=== PATIENT | male | born 1965 | race Caucasian/White ===

== ENCOUNTER → 2017-12-05 | Outpatient (CLI) | payer BC | END | disposition home or self-care (01) | LOC: WOUND 13:50 | PROVIDERS: ATTEND Podiatrist Foot & Ankle Surgery | DX: E11.621 Type 2 diabetes mellitus with foot ulcer (principal); L97.521 Non-pressure chronic ulcer of other part of left foot limited to breakdown of skin; L97.511 Non-pressure chronic ulcer of other part of right foot limited to breakdown of skin; I10 Essential (primary) hypertension; E11.40 Type 2 diabetes mellitus with diabetic neuropathy, unspecified; E78.5 Hyperlipidemia, unspecified; E03.9 Hypothyroidism, unspecified | CPT/HCPCS: 97597; 99205 ==

== ENCOUNTER → 2017-12-19 | Outpatient (CLI) | payer BC | END | disposition home or self-care (01) | LOC: WOUND 09:42 | PROVIDERS: ATTEND Podiatrist Foot & Ankle Surgery | DX: E11.621 Type 2 diabetes mellitus with foot ulcer (principal); L97.411 Non-pressure chronic ulcer of right heel and midfoot limited to breakdown of skin; L97.421 Non-pressure chronic ulcer of left heel and midfoot limited to breakdown of skin; I10 Essential (primary) hypertension; E78.5 Hyperlipidemia, unspecified; E03.9 Hypothyroidism, unspecified; E11.40 Type 2 diabetes mellitus with diabetic neuropathy, unspecified | CPT/HCPCS: 97597 ==

== ENCOUNTER → 2017-12-26 | Outpatient (CLI) | payer BC | END | disposition home or self-care (01) | LOC: WOUND 08:00 | PROVIDERS: ATTEND Podiatrist Foot & Ankle Surgery | DX: E11.621 Type 2 diabetes mellitus with foot ulcer (principal); L97.421 Non-pressure chronic ulcer of left heel and midfoot limited to breakdown of skin; I10 Essential (primary) hypertension; E78.5 Hyperlipidemia, unspecified; E03.9 Hypothyroidism, unspecified; E11.40 Type 2 diabetes mellitus with diabetic neuropathy, unspecified | CPT/HCPCS: 11042 ==

== ENCOUNTER → 2018-01-02 | Outpatient (CLI) | payer BC | END | disposition home or self-care (01) | LOC: WOUND 07:56 | PROVIDERS: ATTEND Podiatrist Foot & Ankle Surgery | DX: E11.621 Type 2 diabetes mellitus with foot ulcer (principal); L97.421 Non-pressure chronic ulcer of left heel and midfoot limited to breakdown of skin; L97.411 Non-pressure chronic ulcer of right heel and midfoot limited to breakdown of skin; I10 Essential (primary) hypertension; E78.5 Hyperlipidemia, unspecified; E03.9 Hypothyroidism, unspecified; E11.40 Type 2 diabetes mellitus with diabetic neuropathy, unspecified | CPT/HCPCS: 97597 ==

== ENCOUNTER → 2019-03-30 | Outpatient (CLI) | payer BC, OTHER | END | disposition home or self-care (01) | LOC: CVU 06:39 | PROVIDERS: ATTEND Internal Medicine Cardiovascular Disease | DX: I10 Essential (primary) hypertension (principal); E11.9 Type 2 diabetes mellitus without complications; R94.31 Abnormal electrocardiogram [ECG] [EKG] | CPT/HCPCS: 78452; 93017; 93306; A9502 ==

== ENCOUNTER 2019-04-30 22:06 | Inpatient (IN) | payer OTHER ==
[~2019-04-30] VITALS: Ht 188 cm; Wt 121.0 kg
[2019-04-30] MEDS ORDERED: ALBUTEROL/IPRATROPIUM 2.5MG/0.5MG, 3 ML ONE (22:28)
[2019-04-30] MEDS ORDERED: ALBUTEROL/IPRATROPIUM 2.5MG/0.5MG, 3 ML NPPB ONE (22:30)
[2019-04-30] MEDS ORDERED: ACETAMINOPHEN 500 MG TABLET PO ONE (22:30)
[2019-04-30] MEDS ORDERED: SODIUM CHLORIDE FLUSH 10ML SYR IVF ONE (22:30)
[2019-04-30] MEDS ORDERED: SODIUM CHLORIDE 0.9% 1,000ML IVBOLUS ONE ×2 (22:30→23:00)
--- NOTE | 2019-04-30 22:30 | NUR ---
PT TO ED AFTER BELIEVED HANTA VIRUS EXPOSURE, CLEANING OUT OLD CABIN FULL OF MICE. PT DIAPHORETIC AND SOB, NO C/O CP. STATES HE FEELS "VERY DIZZY", NO N/V/D. MD AT BEDSIDE, PER MD 2 IV'S AND IVF. IV ESTABLISHED AND 1ST LITER NS IVF INFUSING. LAB AT BEDSIDE. TECH AT BEDSIDE FOR EKG.
[2019-04-30] MEDS ORDERED: ACETAMINOPHEN 500 MG TABLET ONE (22:39)
[2019-04-30 23:15] LABS: ALANINE AMINOTRANSFERASE 22 U/L (12-78); ALBUMIN 3.8 g/dL (3.4-5.0); ANION GAP 14 mmol/L (5-15); CALCIUM 8.3 mg/dL (8.5-10.1); CHLORIDE 110 mmol/L (98-107); CREATININE 1.26 mg/dL (0.7-1.3)
[2019-04-30] MEDS ORDERED: ATOR40TA78 PO (23:15)
[2019-04-30 23:19] LABS: ALKALINE PHOSPHATASE 49 U/L (45-117); BILIRUBIN,TOTAL 0.9 mg/dL (0.2-1.0); TOTAL PROTEIN 7.3 g/dL (6.4-8.2); TROPONIN I < 0.015 ng/mL (0.000-0.045)
[2019-04-30] MEDS ORDERED: METF500T17 PO (23:22)
[2019-04-30] MEDS ORDERED: GLIM4TAB2 PO (23:22)
[2019-04-30] MEDS ORDERED: EMPA25TA PO (23:22)
[2019-04-30] MEDS ORDERED: LIOT5TAB3 PO (23:22)
[2019-04-30] MEDS ORDERED: LEVO175T2 PO (23:22)
[2019-04-30] MEDS ORDERED: TEST1.253 TP (23:22)
[2019-04-30] MEDS ORDERED: FENO145T32 PO (23:22)
[2019-04-30] MEDS ORDERED: LOSA50TA14 PO (23:22)
[2019-04-30] MEDS ORDERED: INSU100I34 INJ (23:22)
[2019-04-30] MEDS ORDERED: SEMA1PEN INJ (23:22)
--- NOTE | 2019-04-30 23:22 | NUR ---
PT RESTING ON GURNEY, DENIES PAIN OR NEEDS, C/O DIZZINESS. MONITORS IN PLACE, SIDERAIL SUP X2, CALL LIGHT WITHIN REACH. SECOND IV SITE STARTED. AWAITING LAB RESULTS, AND CTA
[2019-04-30 23:27] LABS: BASOPHILS # (AUTO) 0.01 x10^3/uL (0-0.1); BASOPHILS % (AUTO) 0 % (0-1); EOSINOPHILS # (AUTO) 0.01 x10^3/uL (0-0.4); EOSINOPHILS % (AUTO) 0 % (1-7); LYMPHOCYTES # (AUTO) 0.68 x10^3/uL (1-3.4); LYMPHOCYTES % (AUTO) 15 % (22-44); MD NO; MEAN CORPUSCULAR HEMOGLOBIN 29.2 pg (27.5-34.5); MEAN CORPUSCULAR HGB CONC 32.8 g/dL (33.2-36.2); MEAN CORPUSCULAR VOLUME 88.8 fL (81-97); MEAN PLATELET VOLUME 7.4 fL (7.4-10.4); MONOCYTES # (AUTO) 0.03 x10^3/uL (0.2-0.8); MONOCYTES % (AUTO) 1 % (2-9); NEUTROPHILS # (AUTO) 3.83 x10^3/uL (1.8-6.8); NEUTROPHILS % (AUTO) 84 % (42-75); PLATELET COUNT 177 x10^3/uL (130-400); RED CELL DISTRIBUTION WIDTH 14.1 % (9.4-14.8)
[2019-04-30 23:37] LABS: O2 FLOW ROOM AIR L/min
--- NOTE | 2019-05-01 00:19 | NUR ---
PT TO RADIOLOGY AT THIS TIME
--- NOTE | 2019-05-01 01:12 | NUR ---
PT RESTING CALMLY, DENIES NEEDS, MONITORS IN PLACE, CALL LIGHT WITHIN REACH. AWAIITNG CT RESULT
[2019-05-01] MEDS ORDERED: OMNIPAQUE 350 MG/ML, 100ML BOTTLE ONE (01:18)
--- NOTE | 2019-05-01 01:34 | NUR ---
PROVIDED PT WITH SANDWICH AND JUICE, PT DENIES FURTHER NEEDS
[2019-05-01] MEDS ORDERED: hydrALAzine 20 MG/ML, 1ML IVPush PRN (02:00)
[2019-05-01 02:17] LABS: HEMOGLOBIN A1C 7.4 % (4.2-6.3)
[2019-05-01 02:20] VITALS: BP 90/60
[2019-05-01] MEDS: ENOXAPARIN 40 MG/0.4 ML SQ SCH (02:25)
[2019-05-01] MEDS: SODIUM CHLORIDE 0.9% 1,000 ML IV SCH ×2 (02:25→16:11)
[2019-05-01] MEDS ORDERED: PREG150C PO (03:10)
[2019-05-01] MEDS ORDERED: CARV6.25 PO (03:10)
[2019-05-01] MEDS: LEVOTHYROXINE 175 MCG TABLET PO SCH (05:59)
[2019-05-01] MEDS ORDERED: INSULIN LISPRO 100 UNITS/ML, PEN SQ-INSULIN SCH (07:00)
[2019-05-01 08:05] VITALS: BP 113/78
[2019-05-01] MEDS: TESTOSTERONE 50 MG TP SCH (08:28)
[2019-05-01] MEDS: FENOFIBRATE 145 MG TABLET PO SCH (08:28)
[2019-05-01] MEDS: Empagliflozin (Jardiance) 25 MG) PO SCH (08:28)
[2019-05-01] MEDS: LIOTHYRONINE 5 MCG TABLET PO SCH (08:28)
[2019-05-01] MEDS: LOSARTAN 50MG TABLET PO SCH (08:28)
[2019-05-01] MEDS: ACETAMINOPHEN 325 MG TABLET PO PRN ×2 (08:32→19:24)
[2019-05-01] MEDS: INSULIN GLARGINE 100 UNITS/ML, PEN SQ-INSULIN SCH (09:47)
[2019-05-01 14:20] VITALS: BP 110/69
[2019-05-01] MEDS: INSULIN LISPRO 100 UNITS/ML, PEN SQ-INSULIN SCH ×2 (16:00→21:08)
[2019-05-01 19:01] LABS: MICROSCOPIC NOT IND
[2019-05-01 19:08] LABS: CULTURE INDICATED? NO
[2019-05-01 19:12] VITALS: BP 100/70
[2019-05-01] MEDS: ATORVASTATIN 80 MG TABLET PO SCH (21:06)
[2019-05-02] MEDS: ENOXAPARIN 40 MG/0.4 ML SQ SCH (02:06)
[2019-05-02 02:09] VITALS: BP 105/73
[2019-05-02] MEDS: SODIUM CHLORIDE 0.9% 1,000 ML IV SCH ×2 (04:13→17:36)
[2019-05-02] MEDS: ACETAMINOPHEN 325 MG TABLET PO PRN (04:49)
[2019-05-02 05:18] LABS: ALBUMIN 2.9 g/dL (3.4-5.0); ANION GAP 7 mmol/L (5-15); CHLORIDE 112 mmol/L (98-107)
[2019-05-02 05:22] LABS: ALANINE AMINOTRANSFERASE 31 U/L (12-78); ALKALINE PHOSPHATASE 41 U/L (45-117); BILIRUBIN,TOTAL 0.5 mg/dL (0.2-1.0); TOTAL PROTEIN 5.9 g/dL (6.4-8.2)
[2019-05-02 06:09] LABS: BASOPHILS # (AUTO) 0.02 x10^3/uL (0-0.1); BASOPHILS % (AUTO) 0 % (0-1); EOSINOPHILS # (AUTO) 0.26 x10^3/uL (0-0.4); EOSINOPHILS % (AUTO) 5 % (1-7); LYMPHOCYTES # (AUTO) 1.09 x10^3/uL (1-3.4); LYMPHOCYTES % (AUTO) 20 % (22-44); MD NO; MEAN CORPUSCULAR HEMOGLOBIN 28.5 pg (27.5-34.5); MEAN CORPUSCULAR HGB CONC 32.5 g/dL (33.2-36.2); MEAN CORPUSCULAR VOLUME 87.9 fL (81-97); MEAN PLATELET VOLUME 7.1 fL (7.4-10.4); MONOCYTES # (AUTO) 0.59 x10^3/uL (0.2-0.8); MONOCYTES % (AUTO) 11 % (2-9); NEUTROPHILS # (AUTO) 3.58 x10^3/uL (1.8-6.8); NEUTROPHILS % (AUTO) 65 % (42-75); PLATELET COUNT 125 x10^3/uL (130-400); RED BLOOD COUNT 4.34 x10^6/uL (4.38-5.82); RED CELL DISTRIBUTION WIDTH 14.6 % (9.4-14.8)
[2019-05-02] MEDS: LEVOTHYROXINE 175 MCG TABLET PO SCH (06:25)
[2019-05-02] MEDS: INSULIN LISPRO 100 UNITS/ML, PEN SQ-INSULIN SCH ×4 (06:58→21:00)
[2019-05-02 07:07] VITALS: BP 117/84
[2019-05-02 08:15] VITALS: BP 115/72
[2019-05-02] MEDS ORDERED: Semaglutide (Ozempic) 1 MG INJ SCH (09:00)
[2019-05-02] MEDS: LOSARTAN 50MG TABLET PO SCH (09:00)
[2019-05-02] MEDS: Empagliflozin (Jardiance) 25 MG) PO SCH (09:00)
[2019-05-02] MEDS: TESTOSTERONE 50 MG TP SCH (09:00)
[2019-05-02] MEDS: FENOFIBRATE 145 MG TABLET PO SCH (09:46)
[2019-05-02] MEDS: LIOTHYRONINE 5 MCG TABLET PO SCH (09:46)
[2019-05-02] MEDS: INSULIN GLARGINE 100 UNITS/ML, PEN SQ-INSULIN SCH (09:59)
[2019-05-02 13:20] VITALS: BP 113/76
[2019-05-02 18:50] VITALS: BP 109/69
[2019-05-02] MEDS: PREGABALIN 150 MG CAPSULE PO SCH (21:01)
[2019-05-02] MEDS: ATORVASTATIN 80 MG TABLET PO SCH (21:01)
[2019-05-03 01:55] VITALS: BP 115/65
[2019-05-03] MEDS: ENOXAPARIN 40 MG/0.4 ML SQ SCH (01:55)
[2019-05-03 05:06] LABS: BASOPHILS # (AUTO) 0.02 x10^3/uL (0-0.1); BASOPHILS % (AUTO) 1 % (0-1); EOSINOPHILS % (AUTO) 5 % (1-7); LYMPHOCYTES # (AUTO) 1.38 x10^3/uL (1-3.4); LYMPHOCYTES % (AUTO) 31 % (22-44); MD NO; MEAN CORPUSCULAR HEMOGLOBIN 29.5 pg (27.5-34.5); MEAN CORPUSCULAR HGB CONC 32.9 g/dL (33.2-36.2); MEAN CORPUSCULAR VOLUME 89.4 fL (81-97); MEAN PLATELET VOLUME 7.6 fL (7.4-10.4); MONOCYTES % (AUTO) 14 % (2-9); NEUTROPHILS % (AUTO) 50 % (42-75); PLATELET COUNT 165 x10^3/uL (130-400); RED BLOOD COUNT 4.51 x10^6/uL (4.38-5.82); RED CELL DISTRIBUTION WIDTH 14.2 % (9.4-14.8)
[2019-05-03 05:09] LABS: ALBUMIN 3.1 g/dL (3.4-5.0); ANION GAP 5 mmol/L (5-15); CALCIUM 8.6 mg/dL (8.5-10.1); CHLORIDE 113 mmol/L (98-107)
[2019-05-03 05:12] LABS: ALANINE AMINOTRANSFERASE 27 U/L (12-78); ALKALINE PHOSPHATASE 49 U/L (45-117); BILIRUBIN,TOTAL 0.3 mg/dL (0.2-1.0); CREATININE 1.04 mg/dL (0.7-1.3); TOTAL PROTEIN 6.3 g/dL (6.4-8.2)
[2019-05-03] MEDS: LEVOTHYROXINE 175 MCG TABLET PO SCH (05:33)
[2019-05-03] MEDS: INSULIN LISPRO 100 UNITS/ML, PEN SQ-INSULIN SCH ×2 (06:41→11:13)
[2019-05-03 08:15] VITALS: BP 122/79
[2019-05-03] MEDS: Empagliflozin (Jardiance) 25 MG) PO SCH (09:00)
[2019-05-03] MEDS: TESTOSTERONE 50 MG TP SCH (09:00)
[2019-05-03] MEDS: SODIUM CHLORIDE 0.9% 1,000 ML IV SCH (09:02)
[2019-05-03] MEDS: LIOTHYRONINE 5 MCG TABLET PO SCH (09:03)
[2019-05-03] MEDS: PREGABALIN 150 MG CAPSULE PO SCH (09:03)
[2019-05-03] MEDS: FENOFIBRATE 145 MG TABLET PO SCH (09:03)
[2019-05-03] MEDS: LOSARTAN 50MG TABLET PO SCH (09:03)
[2019-05-03] MEDS: INSULIN GLARGINE 100 UNITS/ML, PEN SQ-INSULIN SCH (09:04)
[2019-05-03 14:00] VITALS: BP 112/64
[2019-05-03 14:04] VITALS: BP 110/69
== END 2019-05-03 14:22 | disposition home or self-care (01) | DRG 871 ==
LOC: ED 23:49 → EDIP 05-01 01:27 → 4NOR 05-01 02:02
PROVIDERS: ADMIT Family Medicine; ATTEND Internal Medicine
DX: A41.9 Sepsis, unspecified organism (principal); J12.9 Viral pneumonia, unspecified; E03.9 Hypothyroidism, unspecified; E11.65 Type 2 diabetes mellitus with hyperglycemia; I10 Essential (primary) hypertension; Z88.0 Allergy status to penicillin; E78.5 Hyperlipidemia, unspecified; E86.0 Dehydration
CPT/HCPCS: 36415; 36600; 84145; J7620; 71045; 71275; 80053; 81003; 82803; 82962; 83036; 83605; 83880; 84484; 85025; 86790; 87040; 93005; 94640; G0378; J1650; Q9967; J1815; J7030

== ENCOUNTER 2019-05-06 09:16 | Inpatient (IN) | payer OTHER ==
[~2019-05-06] VITALS: Ht 188 cm; Wt 119.0 kg
[~2019-05-06 09:16] MED LIST: ATOR40TA78 PO; CARV6.25 PO; EMPA25TA PO; FENO145T32 PO; GLIM4TAB2 PO; INSU100I34 INJ; LEVO175T2 PO; LIOT5TAB3 PO; LOSA50TA14 PO; METF500T17 PO; PREG150C PO; SEMA1PEN INJ; TEST1.253 TP
--- NOTE | 2019-05-06 09:40 | NUR ---
PT HAS CO OF FEVER, BODY ACHES. WAS RECENTLY ADMITTED FOR SAME COMPLAINT, DC ON SATURDAY. PT STATES HE WAS AFREBRILE FOR 3 DAYS UNTIL 530 AM TODAY.
[2019-05-06] MEDS ORDERED: ACETAMINOPHEN 500 MG TABLET ONE (10:16)
[2019-05-06] MEDS ORDERED: MORPHINE SULFATE 4 MG/ML, 1ML ONE (10:28)
[2019-05-06] MEDS ORDERED: MORPHINE SULFATE 4 MG/ML, 1ML IVPush PRN (10:30)
[2019-05-06] MEDS ORDERED: ACETAMINOPHEN 500 MG TABLET PO ONE (10:30)
[2019-05-06] MEDS ORDERED: SODIUM CHLORIDE 0.9% 1,000ML IVBOLUS ONE ×2 (10:30→13:30)
--- NOTE | 2019-05-06 10:34 | NUR ---
BLOOD CULTURES DRAWN. MEDICATED PER MD ORDERS. PAIN 03/30
[2019-05-06 11:28] LABS: INTERNATIONAL NORMALIZED RATIO 0.98 (0.93-1.1); PROTHROMBIN TIME 10.3 Seconds (9.6-11.5)
[2019-05-06 11:31] LABS: BASOPHILS # (AUTO) 0.02 x10^3/uL (0-0.1); BASOPHILS % (AUTO) 0 % (0-1); EOSINOPHILS # (AUTO) 0.06 x10^3/uL (0-0.4); EOSINOPHILS % (AUTO) 1 % (1-7); LYMPHOCYTES % (AUTO) 7 % (22-44); MD NO; MEAN CORPUSCULAR HGB CONC 32.7 g/dL (33.2-36.2); MEAN CORPUSCULAR VOLUME 88.5 fL (81-97); MEAN PLATELET VOLUME 7.2 fL (7.4-10.4); MONOCYTES # (AUTO) 0.39 x10^3/uL (0.2-0.8); MONOCYTES % (AUTO) 5 % (2-9); NEUTROPHILS # (AUTO) 7.35 x10^3/uL (1.8-6.8); NEUTROPHILS % (AUTO) 87 % (42-75); PLATELET COUNT 236 x10^3/uL (130-400); RED BLOOD COUNT 5.25 x10^6/uL (4.38-5.82); RED CELL DISTRIBUTION WIDTH 14.4 % (9.4-14.8)
[2019-05-06 11:32] LABS: ALANINE AMINOTRANSFERASE 25 U/L (12-78); ANION GAP 9 mmol/L (5-15); CALCIUM 8.8 mg/dL (8.5-10.1); CHLORIDE 109 mmol/L (98-107); CREATININE 1.13 mg/dL (0.7-1.3)
[2019-05-06 11:34] LABS: ALKALINE PHOSPHATASE 67 U/L (45-117); BILIRUBIN,TOTAL 0.9 mg/dL (0.2-1.0); TOTAL PROTEIN 7.8 g/dL (6.4-8.2)
--- NOTE | 2019-05-06 11:36 | NUR ---
PT STATES HEADACHE IS MUCH BETTER. PAIN HAS DECREASED. PT IS RESTING COMFORTABLE. VS STABLE. FAMILY AT BEDSIDE
--- NOTE | 2019-05-06 12:10 | NUR ---
GIVEN JUICE AND CRACKERS. PT STATES HE IS A DIABETIC, SELF BLOOD SUGAR TESTING
[2019-05-06] MEDS ORDERED: OMNIPAQUE 350 MG/ML, 100ML BOTTLE ONE (12:13)
[2019-05-06] MEDS ORDERED: IBUPROFEN 800 MG TABLET PO ONE (12:30)
[2019-05-06] MEDS ORDERED: IBUPROFEN 800 MG TABLET ONE (12:47)
[2019-05-06] MEDS ORDERED: TEMPLATE NON-FORMULARY MED. (Semaglutide (Ozempic) 1 MG) INJ SCH (14:30)
[2019-05-06] MEDS ORDERED: MELATONIN 3 MG TABLET PO PRN (14:30)
[2019-05-06] MEDS ORDERED: ONDANSETRON ODT 4 MG PO PRN (14:30)
[2019-05-06] MEDS ORDERED: hydrALAzine 20 MG/ML, 1ML IV PRN (14:30)
[2019-05-06] MEDS ORDERED: LIDOCAINE-MPF 1%, 5ML ONE (14:48)
[2019-05-06] MEDS ORDERED: GLUCAGON 1 MG IM PRN (15:30)
[2019-05-06] MEDS ORDERED: DEXTROSE 50%, 50ML SYRINGE IVPush PRN (15:30)
[2019-05-06] MEDS ORDERED: SEMAGLUTIDE MC SCH (15:30)
[2019-05-06] MEDS ORDERED: DEXTROSE 4 GM TAB.CHEW PO PRN (15:30)
[2019-05-06] MEDS: INSULIN LISPRO 100 UNITS/ML, PEN SQ-INSULIN SCH ×2 (16:00→21:00)
[2019-05-06 16:10] LABS: GLUCOSE, CSF 76 mg/dL (40-80); TOTAL PROTEIN,CSF 46 mg/dL (15-45)
[2019-05-06 16:29] LABS: HCT (SEDRATE) 44.5 % (39.2-51.8)
[2019-05-06] MEDS: ACETAMINOPHEN 325 MG TABLET PO PRN ×2 (16:41→21:37)
[2019-05-06] MEDS: SODIUM CHLORIDE 0.9% 1,000 ML IV SCH (16:41)
[2019-05-06 16:47] LABS: C-REACTIVE PROTEIN, QUANT 8.2 mg/dL (0.02-0.49)
[2019-05-06] MEDS ORDERED: POTASSIUM CHLORIDE 20 MEQ TAB.ER.PRT PO ONE (17:00)
[2019-05-06 19:54] VITALS: BP 125/81
[2019-05-06] MEDS: PREGABALIN 150 MG CAPSULE PO SCH (20:49)
[2019-05-06] MEDS: CARVEDILOL 6.25 MG TABLET PO SCH (20:50)
[2019-05-06] MEDS: ATORVASTATIN 40 MG TABLET PO SCH (20:50)
[2019-05-06] MEDS: SODIUM CHLORIDE FLUSH 10ML SYR IVF SCH (20:57)
[2019-05-07] MEDS: SODIUM CHLORIDE 0.9% 1,000 ML IV SCH ×3 (01:07→23:01)
[2019-05-07 01:19] VITALS: BP 121/68
[2019-05-07] MEDS: LEVOTHYROXINE 175 MCG TABLET PO SCH (05:23)
[2019-05-07] MEDS: ACETAMINOPHEN 325 MG TABLET PO PRN ×3 (05:24→20:06)
[2019-05-07 05:31] LABS: ALANINE AMINOTRANSFERASE 18 U/L (12-78); ALBUMIN 2.9 g/dL (3.4-5.0); ANION GAP 10 mmol/L (5-15); CALCIUM 8.2 mg/dL (8.5-10.1); CHLORIDE 108 mmol/L (98-107); CREATININE 1.02 mg/dL (0.7-1.3)
[2019-05-07 05:32] LABS: BASOPHILS # (AUTO) 0.03 x10^3/uL (0-0.1); BASOPHILS % (AUTO) 0 % (0-1); EOSINOPHILS # (AUTO) 0.03 x10^3/uL (0-0.4); EOSINOPHILS % (AUTO) 1 % (1-7); LYMPHOCYTES # (AUTO) 0.85 x10^3/uL (1-3.4); LYMPHOCYTES % (AUTO) 11 % (22-44); MD NO; MEAN CORPUSCULAR HEMOGLOBIN 28.5 pg (27.5-34.5); MEAN CORPUSCULAR HGB CONC 32.6 g/dL (33.2-36.2); MEAN CORPUSCULAR VOLUME 87.4 fL (81-97); MEAN PLATELET VOLUME 6.5 fL (7.4-10.4); MONOCYTES # (AUTO) 0.89 x10^3/uL (0.2-0.8); MONOCYTES % (AUTO) 12 % (2-9); NEUTROPHILS # (AUTO) 5.79 x10^3/uL (1.8-6.8); NEUTROPHILS % (AUTO) 76 % (42-75); PLATELET COUNT 174 x10^3/uL (130-400); RED BLOOD COUNT 4.47 x10^6/uL (4.38-5.82); RED CELL DISTRIBUTION WIDTH 14.3 % (9.4-14.8)
[2019-05-07 05:33] LABS: ALKALINE PHOSPHATASE 48 U/L (45-117); BILIRUBIN,TOTAL 1.2 mg/dL (0.2-1.0); TOTAL PROTEIN 6.5 g/dL (6.4-8.2)
[2019-05-07] MEDS: INSULIN LISPRO 100 UNITS/ML, PEN SQ-INSULIN SCH ×4 (07:00→20:01)
[2019-05-07 07:50] VITALS: BP 137/74
[2019-05-07] MEDS: INSULIN GLARGINE 100 UNITS/ML, PEN SQ-INSULIN SCH (09:00)
[2019-05-07] MEDS: TESTOSTERONE 50 MG TP SCH (09:00)
[2019-05-07] MEDS: SODIUM CHLORIDE FLUSH 10ML SYR IVF SCH ×2 (09:00→20:23)
[2019-05-07] MEDS: ENOXAPARIN 40 MG/0.4 ML SQ SCH (09:09)
[2019-05-07] MEDS: SENNA/DOCUSATE TABLET PO SCH (09:10)
[2019-05-07] MEDS: GLIMEPIRIDE 4 MG TABLET PO SCH (09:10)
[2019-05-07] MEDS: PREGABALIN 150 MG CAPSULE PO SCH ×2 (09:10→20:06)
[2019-05-07] MEDS: LIOTHYRONINE 5 MCG TABLET PO SCH (09:10)
[2019-05-07] MEDS: CARVEDILOL 6.25 MG TABLET PO SCH ×2 (09:11→20:23)
[2019-05-07] MEDS: FENOFIBRATE 145 MG TABLET PO SCH (09:11)
[2019-05-07] MEDS ORDERED: IBUPROFEN 200 MG TABLET PO PRN (12:00)
[2019-05-07 13:35] VITALS: BP 144/76
[2019-05-07 14:03] LABS: ANA SCREEN POSITIVE (Negative); ANA TITER MIXED; ANTI-NUCLEAR ANTIBODY PATTERN MIXED
[2019-05-07 19:57] VITALS: BP 109/72
[2019-05-07] MEDS: ATORVASTATIN 40 MG TABLET PO SCH (20:06)
[2019-05-08 01:51] VITALS: BP 110/70
[2019-05-08] MEDS: LEVOTHYROXINE 175 MCG TABLET PO SCH (06:09)
[2019-05-08 06:49] LABS: MEAN CORPUSCULAR HEMOGLOBIN 28.6 pg (27.5-34.5); MEAN CORPUSCULAR HGB CONC 32.9 g/dL (33.2-36.2); MEAN CORPUSCULAR VOLUME 86.9 fL (81-97); RED BLOOD COUNT 4.08 x10^6/uL (4.38-5.82); RED CELL DISTRIBUTION WIDTH 14.1 % (9.4-14.8)
[2019-05-08 06:52] LABS: ALBUMIN 2.4 g/dL (3.4-5.0); ANION GAP 10 mmol/L (5-15); CALCIUM 8.1 mg/dL (8.5-10.1); CHLORIDE 108 mmol/L (98-107)
[2019-05-08 06:56] LABS: ALANINE AMINOTRANSFERASE 13 U/L (12-78); ALKALINE PHOSPHATASE 50 U/L (45-117); BILIRUBIN,TOTAL 0.8 mg/dL (0.2-1.0); CREATININE 0.94 mg/dL (0.7-1.3)
[2019-05-08] MEDS: INSULIN LISPRO 100 UNITS/ML, PEN SQ-INSULIN SCH ×4 (07:00→21:08)
[2019-05-08 07:36] VITALS: BP 125/74
[2019-05-08 07:46] LABS: MEAN PLATELET VOLUME 6.6 fL (7.4-10.4); PLATELET COUNT 132 x10^3/uL (130-400)
[2019-05-08 07:56] LABS: MD YES
[2019-05-08 08:00] LABS: BAND#(MANUAL) 0.21 x10^3/uL; BANDS%(MANUAL) 5 % (0-7); BASOS#(MANUAL) 0.04 x10^3/uL (0-0.1); BASOS% (MANUAL) 1 % (0-1); EOS#(MANUAL) 0.08 x10^3/uL (0.0-0.4); EOS% (MANUAL) 2 % (1-7); LYMPHS% (MANUAL) 31 % (22-44); MONOS% (MANUAL) 12 % (2-9); REACTIVE LYMPHS # (MANUAL) 0.08 x10^3/uL (0-0); REACTIVE LYMPHS % (MANUAL) 2 % (0-0); SEG#(MANUAL) 1.97 x10^3/uL (1.8-6.8); SEGS% (MANUAL) 47 % (42-75)
[2019-05-08 08:11] LABS: <RBC MORPHOLOGY> NORMAL
[2019-05-08 08:12] LABS: <PLATELET ESTIMATE> ADEQUATE; <PLT MORPHOLOGY> NORMAL PLT MORPH
[2019-05-08] MEDS: SODIUM CHLORIDE FLUSH 10ML SYR IVF SCH ×2 (09:00→21:00)
[2019-05-08] MEDS: TESTOSTERONE 50 MG TP SCH (09:00)
[2019-05-08] MEDS: FENOFIBRATE 145 MG TABLET PO SCH (09:20)
[2019-05-08] MEDS: GLIMEPIRIDE 4 MG TABLET PO SCH (09:20)
[2019-05-08] MEDS: PREGABALIN 150 MG CAPSULE PO SCH ×2 (09:20→20:11)
[2019-05-08] MEDS: SENNA/DOCUSATE TABLET PO SCH (09:20)
[2019-05-08] MEDS: CARVEDILOL 6.25 MG TABLET PO SCH ×2 (09:20→20:12)
[2019-05-08] MEDS: LIOTHYRONINE 5 MCG TABLET PO SCH (09:20)
[2019-05-08] MEDS: SODIUM CHLORIDE 0.9% 1,000 ML IV SCH (09:21)
[2019-05-08] MEDS: ENOXAPARIN 40 MG/0.4 ML SQ SCH (09:21)
[2019-05-08] MEDS: INSULIN GLARGINE 100 UNITS/ML, PEN SQ-INSULIN SCH (09:22)
[2019-05-08] MEDS: FLUTICASONE NASAL SPRAY 16GM NAS SCH (09:30)
[2019-05-08] MEDS ORDERED: MECLIZINE 25 MG TABLET PO PRN (09:30)
[2019-05-08] MEDS ORDERED: POTASSIUM CHLORIDE 20 MEQ TAB.ER.PRT PO ONE (09:30)
[2019-05-08 11:20] LABS: RAPID PLASMA REAGIN Nonreactive (Nonreactive)
[2019-05-08] MEDS: ACYCLOVIR 400 MG TABLET PO SCH ×3 (12:10→20:11)
[2019-05-08] MEDS: LORATADINE 10 MG TABLET PO SCH (12:10)
[2019-05-08 14:32] VITALS: BP 131/76
[2019-05-08 19:36] VITALS: BP 138/76
[2019-05-08] MEDS: ATORVASTATIN 40 MG TABLET PO SCH (20:12)
[2019-05-09] MEDS: SODIUM CHLORIDE 0.9% 1,000 ML IV SCH ×3 (00:09→20:05)
[2019-05-09 01:19] VITALS: BP 121/74
[2019-05-09] MEDS: LEVOTHYROXINE 175 MCG TABLET PO SCH (05:42)
[2019-05-09 06:10] LABS: CHLORIDE 113 mmol/L (98-107)
[2019-05-09 06:14] LABS: ANION GAP 5 mmol/L (5-15); CALCIUM 8.3 mg/dL (8.5-10.1); CREATININE 1.01 mg/dL (0.7-1.3)
[2019-05-09] MEDS: INSULIN LISPRO 100 UNITS/ML, PEN SQ-INSULIN SCH ×4 (07:00→21:25)
[2019-05-09 07:06] VITALS: BP 142/78
[2019-05-09] MEDS: LORATADINE 10 MG TABLET PO SCH (08:14)
[2019-05-09] MEDS: ENOXAPARIN 40 MG/0.4 ML SQ SCH (08:14)
[2019-05-09] MEDS: CARVEDILOL 6.25 MG TABLET PO SCH ×2 (08:14→21:24)
[2019-05-09] MEDS: INSULIN GLARGINE 100 UNITS/ML, PEN SQ-INSULIN SCH (08:14)
[2019-05-09] MEDS: GLIMEPIRIDE 4 MG TABLET PO SCH (08:15)
[2019-05-09] MEDS: PREGABALIN 150 MG CAPSULE PO SCH ×2 (08:15→21:24)
[2019-05-09] MEDS: SENNA/DOCUSATE TABLET PO SCH (08:15)
[2019-05-09] MEDS: ACYCLOVIR 400 MG TABLET PO SCH (08:15)
[2019-05-09] MEDS: LIOTHYRONINE 5 MCG TABLET PO SCH (08:15)
[2019-05-09] MEDS: FENOFIBRATE 145 MG TABLET PO SCH (08:15)
[2019-05-09] MEDS: FLUTICASONE NASAL SPRAY 16GM NAS SCH (08:16)
[2019-05-09] MEDS: TESTOSTERONE 50 MG TP SCH (09:00)
[2019-05-09] MEDS: SODIUM CHLORIDE FLUSH 10ML SYR IVF SCH ×2 (09:00→21:25)
[2019-05-09 13:18] VITALS: BP 130/64
[2019-05-09] MEDS: TETRACYCLINE HCL 250 MG CAPSULE PO SCH ×2 (16:29→21:24)
[2019-05-09 20:15] VITALS: BP 145/93
[2019-05-09] MEDS: ATORVASTATIN 40 MG TABLET PO SCH (21:24)
[2019-05-10 03:02] VITALS: BP 129/76
[2019-05-10] MEDS: TETRACYCLINE HCL 250 MG CAPSULE PO SCH ×2 (03:04→10:20)
[2019-05-10] MEDS: SODIUM CHLORIDE 0.9% 1,000 ML IV SCH (05:30)
[2019-05-10] MEDS: LEVOTHYROXINE 175 MCG TABLET PO SCH (05:30)
[2019-05-10 06:45] VITALS: BP 138/86
[2019-05-10] MEDS: INSULIN LISPRO 100 UNITS/ML, PEN SQ-INSULIN SCH (09:00)
[2019-05-10] MEDS: TESTOSTERONE 50 MG TP SCH (10:07)
[2019-05-10] MEDS: LIOTHYRONINE 5 MCG TABLET PO SCH (10:15)
[2019-05-10] MEDS: ENOXAPARIN 40 MG/0.4 ML SQ SCH (10:16)
[2019-05-10] MEDS: PREGABALIN 150 MG CAPSULE PO SCH (10:16)
[2019-05-10] MEDS: GLIMEPIRIDE 4 MG TABLET PO SCH (10:16)
[2019-05-10] MEDS: LORATADINE 10 MG TABLET PO SCH (10:17)
[2019-05-10] MEDS: FENOFIBRATE 145 MG TABLET PO SCH (10:17)
[2019-05-10] MEDS: SENNA/DOCUSATE TABLET PO SCH (10:17)
[2019-05-10] MEDS: FLUTICASONE NASAL SPRAY 16GM NAS SCH (10:18)
[2019-05-10] MEDS: INSULIN GLARGINE 100 UNITS/ML, PEN SQ-INSULIN SCH (10:22)
[2019-05-10] MEDS: SODIUM CHLORIDE FLUSH 10ML SYR IVF SCH (10:22)
[2019-05-10] MEDS: CARVEDILOL 6.25 MG TABLET PO SCH (10:28)
[2019-05-10] MEDS ORDERED: DOXY100T9 PO (10:38)
[2019-05-12] MEDS ORDERED: Semaglutide (Ozempic) SQ SCH (09:00)
== END 2019-05-10 13:40 | disposition short-term general hospital (02) | DRG 869 ==
LOC: ED 12:06 → EDIP 13:26 → 3NE 14:39
PROVIDERS: ADMIT Internal Medicine; ATTEND Internal Medicine
PROC: 009U3ZX Drainage of Spinal Canal, Percutaneous Approach, Diagnostic (ICD-10-PCS; principal; 2019-05-06)
DX: A68.1 Tick-borne relapsing fever (principal); I10 Essential (primary) hypertension; E78.5 Hyperlipidemia, unspecified; E11.9 Type 2 diabetes mellitus without complications; E03.9 Hypothyroidism, unspecified; D69.6 Thrombocytopenia, unspecified; E87.6 Hypokalemia; A60.00 Herpesviral infection of urogenital system, unspecified; B02.9 Zoster without complications; Z82.49 Family history of ischemic heart disease and other diseases of the circulatory system; Z79.4 Long term (current) use of insulin
CPT/HCPCS: 36415; 70450; 71045; 74177; 77003; 80048; 80051; 80053; 80074; 82800; 82945; 82962; 83516; 83605; 83615; 83735; 84145; 84157; 84443; 85025; 85610; 85651; 86038; 86039; 86140; 86225; 86235; 86308; 86430; 86592; 86611; 86618; 86622; 86663; 86664; 86665; 86757; 87040; 87070; 87205; 87252; 87806; 88313; 89051; 93308; 93321; 93325; 96361; 96374; G0378; J1650; Q9967; G0475; J1815; J2270; J7030

== ENCOUNTER → 2020-08-31 | Outpatient (CLI) | payer OTHER ==
[~2020-08-31] MED LIST changes: +DOXY-162 PO; -GLIM4TAB2 PO; +GLIM4TAB8 PO; +LIOT5TAB11 PO; -LIOT5TAB3 PO; -TEST1.253 TP; +TEST1.257 TP
== END | disposition home or self-care (01) ==
LOC: RAD 08:33
PROVIDERS: ATTEND Family Medicine
DX: M19.011 Primary osteoarthritis, right shoulder (principal)

== ENCOUNTER 2020-09-13 17:08 | Emergency (ER) | payer OTHER ==
[~2020-09-13] VITALS: Ht 188 cm; Wt 119.9 kg
[2020-09-13 18:13] LABS: BASOPHILS % (AUTO) 0 % (0-1); EOSINOPHILS % (AUTO) 0 % (1-7); LYMPHOCYTES % (AUTO) 7 % (22-44); MEAN CORPUSCULAR HEMOGLOBIN 29.1 pg (27.5-34.5); MEAN CORPUSCULAR HGB CONC 33.3 g/dL (33.2-36.2); MEAN PLATELET VOLUME 7.2 fL (7.4-10.4); MONOCYTES % (AUTO) 10 % (2-9); NEUTROPHILS % (AUTO) 83 % (42-75); PLATELET COUNT 244 x10^3/uL (130-400); RED CELL DISTRIBUTION WIDTH 15.7 % (9.4-14.8)
[2020-09-13 18:23] LABS: ALBUMIN 3.8 g/dL (3.4-5.0); ANION GAP 12 mmol/L (5-15); CALCIUM 9.3 mg/dL (8.5-10.1); CHLORIDE 106 mmol/L (98-107); CREATININE 1.13 mg/dL (0.7-1.3)
[2020-09-13 18:42] LABS: MD SCAN
--- NOTE | 2020-09-13 19:13 | NUR ---
PER PT HE HAS HAD A HEADACHE SINCE 0100 TODAY, FEVER 101 AT HOME. PT REPORTING CONGESTION BUT DENIES COUGH/N/V. PT TOOK 800MG MOTRIN @1230, BUT NO TYLENOL. PT RESTING IN [facility], NO COMPLAINTS AT THIS TIME, CONTINUOUS PULSE OX IN PLACE, NAD NOTED, WILL CONTINUE TO MONITOR.
[2020-09-13 19:36] LABS: MICROSCOPIC AUTO
[2020-09-13 20:22] VITALS: BP 127/88
== END 2020-09-13 20:24 | disposition home or self-care (01) ==
LOC: ED 18:16
DX: R50.9 Fever, unspecified (principal); R51.9 Headache, unspecified; D72.829 Elevated white blood cell count, unspecified; R06.02 Shortness of breath; R00.0 Tachycardia, unspecified; E11.9 Type 2 diabetes mellitus without complications
CPT/HCPCS: 71045; 80048; 81001; 82040; 85025; 87086; 87635; 93005; 99285

== ENCOUNTER 2020-09-16 12:03 | Emergency (ER) | payer OTHER ==
[~2020-09-16] VITALS: Ht 188 cm; Wt 119.3 kg
--- NOTE | 2020-09-16 12:28 | NUR ---
PATIENT WALKED BACK FROM [facility] WITH CHIEF C/O FEVER X30 HOURS. PATIENT STATES THE FEVER WILL BREAK FOR 30-45 MINUTES, BUT HAS BEEN PRETTY CONSISTENT FOR THE LAST 30 HOURS. PATIENT REPORTS HIGHEST TEMP OF 102.3 EARLY THIS MORNING. PATIENT HAS BEEN TAKING TYLENOL AND IBUPROFEN ON AND OFF, BRINGS FEVER DOWN TO 99.0-100.0. PATIENT DENIES N/V/D, NO SOB, PATIENT DOES REPORT MCNAIR AND BODY ACHES. NO SIGNS OF ACUTE DISTRESS, CONNECTED TO VITALS MACHINE, ACCOMPANIED BY , CALL LIGHT WITHIN REACH.
[2020-09-16] MEDS ORDERED: INSU100C5 SQ-INSULIN (12:36)
[2020-09-16] MEDS ORDERED: METOCLOPRAMIDE 5 MG/ML, 2ML IVPush ONE (13:00)
[2020-09-16] MEDS ORDERED: KETOROLAC 30 MG/1 ML IVPush ONE (13:00)
[2020-09-16] MEDS ORDERED: KETOROLAC 30 MG/1 ML ONE (13:04)
[2020-09-16] MEDS ORDERED: METOCLOPRAMIDE 5 MG/ML, 2ML ONE (13:04)
[2020-09-16 13:17] LABS: BASOPHILS % (AUTO) 0 % (0-1); EOSINOPHILS % (AUTO) 0 % (1-7); LYMPHOCYTES % (AUTO) 9 % (22-44); MEAN CORPUSCULAR HEMOGLOBIN 29.2 pg (27.5-34.5); MEAN CORPUSCULAR HGB CONC 33.9 g/dL (33.2-36.2); MEAN PLATELET VOLUME 7.2 fL (7.4-10.4); MONOCYTES % (AUTO) 8 % (2-9); NEUTROPHILS % (AUTO) 82 % (42-75); PLATELET COUNT 193 x10^3/uL (130-400); RED BLOOD COUNT 5.48 x10^6/uL (4.38-5.82); RED CELL DISTRIBUTION WIDTH 15.4 % (9.4-14.8)
[2020-09-16 13:28] LABS: MD NO
[2020-09-16 13:30] LABS: ALBUMIN 3.2 g/dL (3.4-5.0); ANION GAP 7 mmol/L (5-15); CALCIUM 9.4 mg/dL (8.5-10.1); CHLORIDE 107 mmol/L (98-107)
[2020-09-16 13:35] LABS: ALANINE AMINOTRANSFERASE 40 U/L (12-78); ALKALINE PHOSPHATASE 120 U/L (45-117); BILIRUBIN,TOTAL 0.4 mg/dL (0.2-1.0); CREATININE 1.09 mg/dL (0.7-1.3); TOTAL PROTEIN 7.5 g/dL (6.4-8.2)
--- NOTE | 2020-09-16 14:47 | NUR ---
COVID-19 AND FLU SWABS COLLECTED AND WALKED TO LAB.
[2020-09-16 14:53] VITALS: BP 130/73
--- NOTE | 2020-09-16 14:54 | NUR ---
Patient and significant other given discharge instructions and they have confirmed that they understand the instructions. Patient ambulatory with steady gait from ED.
[2020-09-16 15:22] LABS: RAPID INFLUENZA A INDETERMINATE (Negative)
[2020-09-16 15:23] LABS: RAPID INFLUENZA B INDETERMINATE (Negative)
[2020-09-17] MEDS ORDERED: CHOL10003 PO (16:41)
[2020-09-17] MEDS ORDERED: OMEG-170 PO (16:41)
[2020-09-17] MEDS ORDERED: ALPH50CA2 PO (16:41)
[2020-09-17] MEDS ORDERED: DOCU-180 PO (16:41)
[2020-09-17] MEDS ORDERED: [UNRECOGNIZED DRUG - REMARK] PO (16:41)
[2020-09-17] MEDS ORDERED: UBID30CA9 PO (16:41)
== END 2020-09-16 14:56 | disposition home or self-care (01) ==
LOC: ED 14:09
DX: B34.9 Viral infection, unspecified (principal); Z20.828 Contact with and (suspected) exposure to other viral communicable diseases; E11.9 Type 2 diabetes mellitus without complications; R51.9 Headache, unspecified; R50.9 Fever, unspecified; I44.4 Left anterior fascicular block; Z87.891 Personal history of nicotine dependence
CPT/HCPCS: 36415; 71045; 80053; 83605; 84145; 85025; 87040; 87186; 87400; 87635; 93005; 96374; 96375; 99285; J1885; J2765

== ENCOUNTER 2020-09-17 11:07 | Inpatient (IN) | payer OTHER ==
[~2020-09-17] VITALS: Ht 188 cm; Wt 119.8 kg
[~2020-09-17 11:07] MED LIST changes: +INSU100C5 SQ-INSULIN
--- NOTE | 2020-09-17 11:47 | NUR ---
Pt to room from [facility], ambulatory with steady gait.
[2020-09-17] MEDS ORDERED: PIPERACILLIN/TAZO/PMX 3.375GM 50 ML IVPB ONE (12:00)
[2020-09-17] MEDS ORDERED: SODIUM CHLORIDE 0.9% 1,000ML IVBOLUS ONE (12:00)
[2020-09-17] MEDS ORDERED: PIPERACILLIN/TAZO/PMX 3.375GM 50 ML ONE (12:03)
--- NOTE | 2020-09-17 12:05 | NUR ---
Pt reports he was called back to ER for admission based on blood culture results. Pt to be admitted for IV abx. Pt placed in gown, positioned for comfort in bed. Continuoust oxygen and BP monitors applied, all safety measures observed.
[2020-09-17 12:17] LABS: BASOPHILS % (AUTO) 0 % (0-1); EOSINOPHILS % (AUTO) 1 % (1-7); LYMPHOCYTES % (AUTO) 9 % (22-44); MEAN CORPUSCULAR HEMOGLOBIN 29.2 pg (27.5-34.5); MEAN CORPUSCULAR HGB CONC 33.6 g/dL (33.2-36.2); MEAN PLATELET VOLUME 7.3 fL (7.4-10.4); MONOCYTES % (AUTO) 11 % (2-9); NEUTROPHILS % (AUTO) 79 % (42-75); PLATELET COUNT 171 x10^3/uL (130-400); RED BLOOD COUNT 5.42 x10^6/uL (4.38-5.82); RED CELL DISTRIBUTION WIDTH 15.5 % (9.4-14.8)
[2020-09-17 12:18] LABS: MD NO
--- NOTE | 2020-09-17 12:20 | NUR ---
Report to Gena MARQUEZ.
[2020-09-17 12:29] LABS: ALANINE AMINOTRANSFERASE 66 U/L (12-78); ALBUMIN 3.2 g/dL (3.4-5.0); ANION GAP 9 mmol/L (5-15); CALCIUM 8.8 mg/dL (8.5-10.1); CHLORIDE 108 mmol/L (98-107); CREATININE 1.09 mg/dL (0.7-1.3)
[2020-09-17 12:32] LABS: ALKALINE PHOSPHATASE 151 U/L (45-117); BILIRUBIN,TOTAL 0.5 mg/dL (0.2-1.0); TOTAL PROTEIN 7.3 g/dL (6.4-8.2)
--- NOTE | 2020-09-17 13:12 | NUR ---
REPORT TO ERASMO MARQUEZ
[2020-09-17] MEDS ORDERED: GLUCAGON 1 MG IM PRN (15:00)
[2020-09-17] MEDS ORDERED: LABETALOL 5MG/ML, 20ML IVPush PRN (15:00)
[2020-09-17] MEDS ORDERED: DEXTROSE 50%, 50ML SYRINGE IVPush PRN (15:00)
[2020-09-17] MEDS ORDERED: POLYETHYLENE GLYCOL 17 GM PACKET PO PRN (15:00)
[2020-09-17] MEDS ORDERED: ONDANSETRON 2MG/ML, 2ML IVPush PRN (15:00)
[2020-09-17] MEDS ORDERED: DEXTROSE 4 GM TAB.CHEW PO PRN (15:00)
[2020-09-17] MEDS ORDERED: LIDODERM 5% PATCH TD PRN (15:00)
[2020-09-17] MEDS ORDERED: DOCUSATE 100 MG CAPSULE PO PRN (15:00)
[2020-09-17 15:07] LABS: HCT (SEDRATE) 47.1 % (39.2-51.8)
[2020-09-17 15:19] LABS: C-REACTIVE PROTEIN, QUANT 12.6 mg/dL (0.02-0.49)
[2020-09-17] MEDS ORDERED: LIDODERM REMOVE PATCH NOTE XX PRN (15:30)
[2020-09-17] MEDS: INSULIN LISPRO 100 UNITS/ML, PEN SQ-INSULIN SCH ×2 (16:00→21:00)
[2020-09-17] MEDS ORDERED: DAPTOMYCIN 700 MG in SODIUM CHLORIDE 0.9% 100 ML IVPB SCH (16:00)
[2020-09-17] MEDS ORDERED: ENOXAPARIN 40 MG/0.4 ML ONE (16:28)
[2020-09-17] MEDS ORDERED: ACETAMINOPHEN 325 MG TABLET ONE (16:28)
[2020-09-17] MEDS: ENOXAPARIN 40 MG/0.4 ML SQ SCH (16:32)
[2020-09-17] MEDS: ACETAMINOPHEN 325 MG TABLET PO PRN ×2 (16:32→23:24)
[2020-09-17] MEDS ORDERED: [UNRECOGNIZED DRUG - REMARK] PO (16:41)
[2020-09-17] MEDS ORDERED: OMEG-170 PO (16:41)
[2020-09-17] MEDS ORDERED: DOCU-180 PO (16:41)
[2020-09-17] MEDS ORDERED: CHOL10003 PO (16:41)
[2020-09-17] MEDS ORDERED: UBID30CA9 PO (16:41)
[2020-09-17] MEDS ORDERED: ALPH50CA2 PO (16:41)
--- NOTE | 2020-09-17 19:03 | NUR ---
Report from ALMA Mejia. Pt care assumed.
--- NOTE | 2020-09-17 19:30 | NUR ---
Pt up to restroom independently. No difficulty noted. Pt transferred to hospital bed. Denies any further needs or concerns, call light in reach.
[2020-09-17 20:40] VITALS: BP 164/99
[2020-09-17] MEDS: PREGABALIN 150 MG CAPSULE PO SCH (22:29)
[2020-09-17] MEDS: SODIUM CHLORIDE FLUSH 10ML SYR IVF SCH (22:31)
[2020-09-17] MEDS ORDERED: LABETALOL 20 MG/4 ML IVPush PRN (23:00)
[2020-09-18 01:47] VITALS: BP 134/80
[2020-09-18] MEDS ORDERED: FAMOTIDINE 40 MG TABLET ONE (01:54)
[2020-09-18] MEDS: FAMOTIDINE 20 MG TABLET PO SCH ×3 (01:57→21:01)
[2020-09-18] MEDS: LEVOTHYROXINE 175 MCG TABLET PO SCH (05:34)
[2020-09-18] MEDS: LIOTHYRONINE 5 MCG TABLET PO SCH (05:35)
[2020-09-18 06:05] LABS: BASOPHILS % (AUTO) 1 % (0-1); EOSINOPHILS % (AUTO) 1 % (1-7); LYMPHOCYTES % (AUTO) 15 % (22-44); MEAN CORPUSCULAR HEMOGLOBIN 29.1 pg (27.5-34.5); MEAN CORPUSCULAR HGB CONC 33.2 g/dL (33.2-36.2); MEAN PLATELET VOLUME 7.4 fL (7.4-10.4); MONOCYTES % (AUTO) 15 % (2-9); NEUTROPHILS % (AUTO) 69 % (42-75); PLATELET COUNT 170 x10^3/uL (130-400); RED BLOOD COUNT 4.92 x10^6/uL (4.38-5.82); RED CELL DISTRIBUTION WIDTH 15.5 % (9.4-14.8)
[2020-09-18 06:09] LABS: ALBUMIN 2.8 g/dL (3.4-5.0); ANION GAP 9 mmol/L (5-15); CALCIUM 8.5 mg/dL (8.5-10.1); CHLORIDE 107 mmol/L (98-107)
[2020-09-18 06:18] LABS: ALANINE AMINOTRANSFERASE 48 U/L (12-78); ALKALINE PHOSPHATASE 129 U/L (45-117); BILIRUBIN,TOTAL 0.7 mg/dL (0.2-1.0); CREATININE 0.94 mg/dL (0.7-1.3); TOTAL PROTEIN 6.8 g/dL (6.4-8.2)
[2020-09-18 06:20] LABS: MD NO
[2020-09-18] MEDS: INSULIN LISPRO 100 UNITS/ML, PEN SQ-INSULIN SCH ×4 (07:00→21:00)
[2020-09-18 07:32] LABS: MICROSCOPIC INDICATED
[2020-09-18 07:42] VITALS: BP 140/80
[2020-09-18] MEDS: PREGABALIN 150 MG CAPSULE PO SCH ×2 (08:21→21:01)
[2020-09-18] MEDS: LOSARTAN 50MG TABLET PO SCH (08:21)
[2020-09-18] MEDS: SODIUM CHLORIDE FLUSH 10ML SYR IVF SCH ×2 (08:22→21:00)
[2020-09-18 12:24] VITALS: BP 129/79
[2020-09-18] MEDS: CEFAZOLIN PMX 2GM/50ML 50 ML IVPB SCH ×2 (12:29→21:04)
[2020-09-18] MEDS ORDERED: PNEUMOC 13-VALENT VACC, 0.5 ML IM-VACC ONE (13:00)
[2020-09-18] MEDS: ENOXAPARIN 40 MG/0.4 ML SQ SCH (16:32)
[2020-09-18] MEDS: ACETAMINOPHEN 325 MG TABLET PO PRN ×2 (16:51→21:01)
[2020-09-18 21:26] VITALS: BP 133/80
[2020-09-19 03:03] VITALS: BP 135/82
[2020-09-19] MEDS: CEFAZOLIN PMX 2GM/50ML 50 ML IVPB SCH ×3 (04:31→21:28)
[2020-09-19 05:14] LABS: BASOPHILS % (AUTO) 0 % (0-1); EOSINOPHILS % (AUTO) 1 % (1-7); LYMPHOCYTES % (AUTO) 15 % (22-44); MEAN CORPUSCULAR HEMOGLOBIN 29.5 pg (27.5-34.5); MEAN CORPUSCULAR HGB CONC 33.5 g/dL (33.2-36.2); MEAN PLATELET VOLUME 7.1 fL (7.4-10.4); MONOCYTES % (AUTO) 12 % (2-9); NEUTROPHILS % (AUTO) 72 % (42-75); PLATELET COUNT 200 x10^3/uL (130-400); RED BLOOD COUNT 5.28 x10^6/uL (4.38-5.82); RED CELL DISTRIBUTION WIDTH 14.7 % (9.4-14.8)
[2020-09-19 05:20] LABS: ANION GAP 8 mmol/L (5-15); CALCIUM 8.8 mg/dL (8.5-10.1); CHLORIDE 107 mmol/L (98-107)
[2020-09-19 05:33] LABS: ALANINE AMINOTRANSFERASE 36 U/L (12-78); ALKALINE PHOSPHATASE 123 U/L (45-117); BILIRUBIN,TOTAL 0.5 mg/dL (0.2-1.0); TOTAL PROTEIN 7.7 g/dL (6.4-8.2)
[2020-09-19] MEDS: LIOTHYRONINE 5 MCG TABLET PO SCH (05:35)
[2020-09-19] MEDS: LEVOTHYROXINE 175 MCG TABLET PO SCH (05:35)
[2020-09-19 05:36] LABS: MD NO
[2020-09-19] MEDS: INSULIN LISPRO 100 UNITS/ML, PEN SQ-INSULIN SCH ×4 (07:00→23:10)
[2020-09-19 07:01] VITALS: BP 148/86
[2020-09-19] MEDS: ACETAMINOPHEN 325 MG TABLET PO PRN ×2 (08:25→21:27)
[2020-09-19] MEDS: SODIUM CHLORIDE FLUSH 10ML SYR IVF SCH ×2 (08:26→21:28)
[2020-09-19] MEDS: FAMOTIDINE 20 MG TABLET PO SCH ×2 (08:26→21:27)
[2020-09-19] MEDS: LOSARTAN 50MG TABLET PO SCH (08:26)
[2020-09-19] MEDS: PREGABALIN 150 MG CAPSULE PO SCH ×2 (08:26→21:27)
[2020-09-19 12:25] VITALS: BP 155/88
[2020-09-19] MEDS: ENOXAPARIN 40 MG/0.4 ML SQ SCH (17:17)
[2020-09-19 19:34] VITALS: BP 168/87
[2020-09-19] MEDS ORDERED: ATORVASTATIN 80 MG TABLET PO SCH (21:00)
[2020-09-19] MEDS ORDERED: metFORMIN 500 MG TABLET PO SCH (21:00)
[2020-09-19] MEDS: CARVEDILOL 6.25 MG TABLET PO SCH (21:28)
[2020-09-19 21:39] VITALS: BP 139/84
[2020-09-20] VITALS: BP 124/73
[2020-09-20] MEDS: CEFAZOLIN PMX 2GM/50ML 50 ML IVPB SCH (03:58)
[2020-09-20] MEDS: LIOTHYRONINE 5 MCG TABLET PO SCH (06:00)
[2020-09-20] MEDS: LEVOTHYROXINE 175 MCG TABLET PO SCH (06:00)
[2020-09-20 06:48] VITALS: BP 138/85
[2020-09-20] MEDS: INSULIN LISPRO 100 UNITS/ML, PEN SQ-INSULIN SCH ×3 (07:00→16:00)
[2020-09-20] MEDS: SODIUM CHLORIDE FLUSH 10ML SYR IVF SCH (09:00)
[2020-09-20] MEDS: LOSARTAN 50MG TABLET PO SCH (09:10)
[2020-09-20] MEDS: FAMOTIDINE 20 MG TABLET PO SCH (09:10)
[2020-09-20] MEDS: PREGABALIN 150 MG CAPSULE PO SCH (09:10)
[2020-09-20] MEDS: CARVEDILOL 6.25 MG TABLET PO SCH (09:11)
[2020-09-20] MEDS ORDERED: ERTAPENEM 1 GM in SODIUM CHLORIDE 0.9% 50 ML IV SCH (11:30)
[2020-09-20] MEDS ORDERED: ERTA1VIA4 IV (12:20)
[2020-09-20 12:29] LABS: ANA SCREEN POSITIVE (Negative); ANTI-NUCLEAR ANTIBODY PATTERN HOMOGENOUS
[2020-09-20 12:47] VITALS: BP 146/88
[2020-09-20 13:33] VITALS: BP 105/69
== END 2020-09-20 16:05 | disposition home or self-care (01) | DRG 872 ==
LOC: ED 12:11 → SUATTDRO 14:06 → EDIP 14:18 → 3N 20:05
PROVIDERS: ADMIT Family Medicine; ATTEND Internal Medicine
PROC: 3E0234Z Introduction of Serum, Toxoid and Vaccine into Muscle, Percutaneous Approach (ICD-10-PCS; 2020-09-18)
PROC: 02HV33Z Insertion of Infusion Device into Superior Vena Cava, Percutaneous Approach (ICD-10-PCS; principal; 2020-09-20)
PROC: B548ZZA Ultrasonography of Superior Vena Cava, Guidance (ICD-10-PCS; 2020-09-20)
PROC: B5181ZA Fluoroscopy of Superior Vena Cava using Low Osmolar Contrast, Guidance (ICD-10-PCS; 2020-09-20)
DX: A41.9 Sepsis, unspecified organism (principal); E03.9 Hypothyroidism, unspecified; E11.40 Type 2 diabetes mellitus with diabetic neuropathy, unspecified; E29.1 Testicular hypofunction; B95.61 Methicillin susceptible Staphylococcus aureus infection as the cause of diseases classified elsewhere; I10 Essential (primary) hypertension; Z88.0 Allergy status to penicillin; Z79.4 Long term (current) use of insulin; Z88.1 Allergy status to other antibiotic agents; Z23 Encounter for immunization
CPT/HCPCS: 36415; 36573; 71045; 80053; 81001; 82550; 83036; 83605; 84145; 84443; 85025; 85651; 86038; 86039; 86140; 87040; 87086; 93306; 96365; 96366; 96375; 99285; G0378; J0690; J0878; J1335; J1650; J2543; C1751; G0009; J1815; J7030